=== PATIENT | female | born 2000 | race African-American/Black ===

== ENCOUNTER 2022-03-09 10:53 | Emergency (ER) | payer OTHER, SELFPAY ==
[2022-03-09 11:46] VITALS: BP 98/58; PULSE 94; RESP 16; TEMP 36.8; O2SAT 100
--- NOTE | 2022-03-09 12:51 | ED.URI ---
HPI - URI/Sore Throat General Chief Complaint: Upper Respiratory Infection Stated Complaint: sore throat Source: patient and family (mother) Mode of arrival: ambulatory Limitations: no limitations History of Present Illness HPI Narrative: 21-year-old female presents to [facility] accompanied by her mother for complaints of headache, sore throat, fatigue, chills, cough, body aches for the past 2 days. Patient has not tried taking any [id number] medications for her symptoms. Patient is a nonsmoker. Patient denies recent travel. Patient shortness of breath, wheezing, nausea, vomiting or diarrhea. MD elicited complaint: rhinorrhea and nasal congestion Onset (ago): day(s) (2) Able to tolerate fluids by mouth: Yes Exacerbating factors: nothing Relieving factors: nothing Treatments prior to arrival: none Related Data Allergies Allergy/AdvReac Type Severity Reaction Status Date / Time No Known Allergies Allergy Verified 03/09/22 12:36 Review of Systems Constitutional: Constitutional: Reports chills, Reports fatigue, Denies fever(s) and Denies weakness ENT: Denies vertigo, Denies dizziness, Reports nasal congestion and Reports sore throat Cardiovascular: Cardiovascular: Denies chest pain Respiratory: Respiratory: Reports cough, Denies dyspnea and Denies wheezing Gastrointestinal: Gastrointestinal: Denies diarrhea, Denies nausea and Denies vomiting Genitourinary: Genitourinary: Denies dysuria Integumentary/Breasts: Skin/Breast: Denies rash PMFSH Comments At time of signature, I agree with nursing past medical, surgical, social and family history. There is no relevant family history pertinent to the presenting complaint. Exam Const: General: healthy appearing and no acute distress Nutritional Appearance: well nourished Orientation/consciousness: patient oriented x3 Limitations: no limitations HENMT: Head: normal to inspection Ears: external ears normal, TM's normal bilaterally and EAC's normal Face/Nose/Sinus: Normal external nose present and Normal nares present Mouth: Yes Normal oral and palatal mucosa present Throat: posterior oropharynx normal Neck: Neck: normal visual inspection Resp: Effort & Inspection: normal respiratory effort and not labored Auscultation: clear to auscultation bilaterally, no crackles, no rales and no rhonchi Cardio: Rate: regular rate Rhythm: regular rhythm Heart sounds: no murmurs Skin: General skin exam: normal color Rashes: no rashes Neuro: General: patient oriented x3 Speech: normal speech Psych: Affect: normal affect Attitude: cooperative Course Course Level of Care: Express Care Visit Vital Signs Vital signs: Vital Signs Temperature 36.8 C 03/09/22 11:46 Pulse Rate 94 03/09/22 11:46 Respiratory Rate 16 03/09/22 11:46 Blood Pressure 98/58 L 03/09/22 11:46 Pulse Oximetry 100 03/09/22 11:46 Oxygen Delivery Room Air 03/09/22 11:46 Temperature 36.8 C 03/09/22 11:46 Pulse Rate 94 03/09/22 11:46 Respiratory Rate 16 03/09/22 11:46 Blood Pressure 98/58 L 03/09/22 11:46 Pulse Oximetry 100 03/09/22 11:46 Oxygen Delivery Room Air 03/09/22 11:46 MDM - URI/Sore Throat MDM Narrative Medical decision making narrative: Discussed negative lab results with patient and mother. Instructed patient mother that symptoms are likely viral at this point. Instructed patient to take medications as prescribed. She agrees to follow up with primary care provider if symptoms not improved Differential Diagnosis Differential diagnosis: Likely otitis media, sinusitis and bronchitis Lab Data Labs: Influenza A Screen Negative Reference Range: Negative Influenza B Screen Negative Reference Range: Negative Strep Screen Presumptive Negative *(Reference Range: Negat
== END 2022-03-09 13:02 | disposition home or self-care (01) ==
PROVIDERS: Emergency Provider Nurse Practitioner Family; PCP Pediatrics Adolescent Medicine
DX: J02.0 Streptococcal pharyngitis (principal); Z20.822 Contact with and (suspected) exposure to COVID-19
CPT/HCPCS: 87081; 87147; 87426; 87804; 87880; 99203; C9803; G0463